=== PATIENT | male | born 1950 | race Two or more races ===

== ENCOUNTER 2022-10-04 08:01 | Inpatient (IN) | payer OTHER ==
[~2022-10-04] VITALS: Ht 165.1 cm; Wt 86.2 kg
[2022-10-05] MEDS ORDERED: LOSARTAN POTAS100 MG PO (12:14)
[2022-10-05] MEDS ORDERED: ATORVASTATIN CA20 MG PO (12:14)
[2022-10-05] MEDS ORDERED: ADULT LOW DOSE81 M1 PO (12:15)
[2022-10-11] MEDS ORDERED: LEVSIN/SL0.125 MG SL (12:13)
[2022-10-11] MEDS ORDERED: INTESTINEX680 M1 PO (12:13)
[2022-10-11] MEDS ORDERED: TRAM1TAB98 PO (12:13)
== END 2022-10-11 13:44 | disposition home or self-care (01) | DRG 330 ==
LOC: SURH 10-08 05:45 → O/R 10-08 05:45 → SURG 10-08 09:30 → SURH 10-08 10:40
PROVIDERS: Internal Medicine Geriatric Medicine; ADMIT Surgery; ATTEND Surgery
PROC: 07BB4ZX Excision of Mesenteric Lymphatic, Percutaneous Endoscopic Approach, Diagnostic (ICD-10-PCS; 2022-10-08)
PROC: 0DTF4ZZ Resection of Right Large Intestine, Percutaneous Endoscopic Approach (ICD-10-PCS; principal; 2022-10-08 09:30)
DX: D12.0 Benign neoplasm of cecum (principal); K92.1 Melena; D37.4 Neoplasm of uncertain behavior of colon